=== PATIENT | female | born 1965 | race Caucasian/White ===

== ENCOUNTER 2022-10-12 12:20 | Emergency (ER) | payer OTHER, BC, SELFPAY ==
[2022-10-12 12:21] VITALS: BP 108/73; PULSE 73; RESP 14; TEMP 36.3; O2SAT 100; BMI 23.6
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
[2022-10-12] MEDS: Orphenadrine 100 MG Tablet PO (15:25)
[2022-10-12] MEDS: Ketorolac 15 MG/ML Vial IM (15:26)
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
[2022-10-12 17:05] VITALS: BP 109/65; PULSE 63; RESP 16; RESP 18; TEMP 36.7; O2SAT 95
[2022-10-12] MEDS: Lidocaine 5% Patch 1 PATCH TOPICAL (17:10)
== END 2022-10-12 17:12 | disposition home or self-care (01) ==
PROVIDERS: Emergency Provider Student in an Organized Health Care Education/Training Program; Visit Provider Student in an Organized Health Care Education/Training Program
DX: S43.402A Unspecified sprain of left shoulder joint, initial encounter (principal); S50.02XA Contusion of left elbow, initial encounter; S50.312A Abrasion of left elbow, initial encounter; S20.212A Contusion of left front wall of thorax, initial encounter; V89.2XXA Person injured in unspecified motor-vehicle accident, traffic, initial encounter
CPT/HCPCS: 71046; 73030; 73080; 96372; 99285